=== PATIENT | female | born 1995 | race Hispanic/Latino ===

== ENCOUNTER 2018-01-07 01:06 | Emergency (ER) | payer MEDICAID, OTHER ==
[2018-01-07 02:02] LABS: BASOPHILS % (AUTO) 0.9 % (0.0-5.0); EOSINOPHILS % (AUTO) 1.7 % (0.0-8.0); HEMATOCRIT 40.5 % (36-48); LYMPHOCYTES % (AUTO) 28.5 % (21.0-51.0); MEAN CORPUSCULAR HEMOGLOBIN 29.3 pg (27.0-33.0); MEAN CORPUSCULAR HGB CONC 34.6 g/dL (32.0-36.0); MEAN CORPUSCULAR VOLUME 84.7 fL (80-100); MONOCYTES % (AUTO) 6.8 % (3.0-13.0); NEUTROPHILS % (AUTO) 62.1 % (40.0-77.0); PLATELET COUNT (AUTO) 220 K/uL (130-400); RED BLOOD CELL COUNT(AUTO) 4.78 MIL/uL (4.00-5.50); RED CELL DISTRIBUTION WIDTH 13.5 % (11.0-15.5); WHITE BLOOD COUNT (AUTO) 12.3 K/uL (4.8-10.8)
[2018-01-07 02:04] LABS: APPEARANCE,URINE Clear (CLEAR); BILIRUBIN,URINE Negative (NEGATIVE); COLOR,URINE Yellow (YELLOW); GLUCOSE, URINE (UA) Negative (NEGATIVE); KETONES,URINE Negative (NEGATIVE); LEUKOCYTE ESTERASE ,URINE Small (NEGATIVE); NITRATE,URINE Negative (NEGATIVE); OCCULT BLOOD,URINE Negative (NEGATIVE); PROTEIN,URINE Negative (NEGATIVE)
[2018-01-07 02:13] LABS: CREATININE 0.8 mg/dL (0.5-1.5); POTASSIUM 3.6 mmol/L (3.5-5.1)
[2018-01-07 02:15] LABS: BACTERIA,URINE None Seen /HPF (None Seen); MUCUS,URINE Rare LPF (None Seen); RBC,URINE None Seen /HPF (0-1); SQUAMOUS EPITHELIAL CELL,UR Few /LPF (0-2); WBC,URINE 0-1 /HPF (0-1)
== END 2018-01-07 05:11 | disposition home or self-care (01) ==
LOC: EDH 01:06
DX: O20.0 Threatened abortion (principal); R10.30 Lower abdominal pain, unspecified; Z3A.01 Less than 8 weeks gestation of pregnancy
CPT/HCPCS: 36415; 76801; 80048; 81001; 84702; 85025; 86900; 86901

== ENCOUNTER 2023-03-14 21:02 | Emergency (ER) | payer MEDICAID ==
[~2023-03-14] VITALS: Ht 157.5 cm; Wt 87.5 kg
[2023-03-14 21:05] VITALS: BP 111/62
[2023-03-14 21:32] LABS: BASOPHILS % (AUTO) 0.4 % (0.0-5.0); EOSINOPHILS % (AUTO) 1.1 % (0.0-8.0); HEMATOCRIT 37.2 % (36-48); LYMPHOCYTES % (AUTO) 13.5 % (21.0-51.0); MEAN CORPUSCULAR HEMOGLOBIN 29.9 pg (27.0-33.0); MEAN CORPUSCULAR HGB CONC 34.7 g/dL (32.0-36.0); MEAN CORPUSCULAR VOLUME 86.1 fL (79-99); MONOCYTES % (AUTO) 5.2 % (3.0-13.0); NEUTROPHILS % (AUTO) 79.3 % (40.0-77.0); PLATELET COUNT (AUTO) 177 K/uL (130-400); RED BLOOD CELL COUNT(AUTO) 4.32 MIL/uL (4.00-5.50); RED CELL DISTRIBUTION WIDTH 13.3 % (11.0-15.5); WHITE BLOOD COUNT (AUTO) 9.7 K/uL (4.8-10.8)
[2023-03-14 21:34] LABS: APPEARANCE,URINE CLEAR (CLEAR); BILIRUBIN,URINE NEGATIVE (NEGATIVE); COLOR,URINE LIGHT-YELLOW (YELLOW); GLUCOSE, URINE (UA) NEGATIVE (NEGATIVE); KETONES,URINE NEGATIVE (NEGATIVE); LEUKOCYTE ESTERASE ,URINE NEGATIVE Leu/uL (NEGATIVE); NITRATE,URINE NEGATIVE (NEGATIVE); OCCULT BLOOD,URINE NEGATIVE (NEGATIVE); PH,URINE 5.5 (5.0-8.0); PROTEIN,URINE NEGATIVE (NEGATIVE); UROBILINOGEN,URINE 0.2 mg/dL (0.2-1.0)
[2023-03-14 21:37] LABS: MUCUS,URINE RARE LPF (None Seen); RBC,URINE 0-1 /HPF (0-1); SQUAMOUS EPITHELIAL CELL,UR RARE /HPF (0-2); WBC,URINE 0-1 /HPF (0-1)
[2023-03-14 21:43] LABS: CREATININE 0.6 mg/dL (0.5-1.5); POTASSIUM 3.8 mmol/L (3.5-5.1)
[2023-03-14 21:48] LABS: ALBUMIN 3.1 g/dL (3.5-5.0); TOTAL PROTEIN, SERUM 7.1 g/dL (6.0-8.3)
== END 2023-03-14 23:35 | disposition home or self-care (01) ==
LOC: EDH 21:02
DX: O26.892 Other specified pregnancy related conditions, second trimester (principal); R10.9 Unspecified abdominal pain; Z3A.18 18 weeks gestation of pregnancy
CPT/HCPCS: 36415; 76805; 80053; 81001; 81025; 83690; 84702; 85025; 86900; 86901

== ENCOUNTER 2023-09-25 21:43 | Emergency (ER) | payer MEDICAID ==
[~2023-09-25] VITALS: Ht 157.5 cm; Wt 92.1 kg
[2023-09-25 21:49] VITALS: BP 134/79; PULSE 74; RESP 16
[2023-09-25] MEDS ORDERED: OMEP20TA20 PO (22:19)
== END 2023-09-25 22:32 | disposition home or self-care (01) ==
LOC: EDH 21:43
DX: K29.70 Gastritis, unspecified, without bleeding (principal)
CPT/HCPCS: 99282

== ENCOUNTER 2025-03-31 14:42 | Emergency (ER) | payer BC, MEDICAID ==
[~2025-03-31] VITALS: Ht 157.5 cm; Wt 86.2 kg
[~2025-03-31 14:42] MED LIST: OMEP20TA20 PO
--- NOTE | 2025-03-31 15:47 | ERN ---
General Chief Complaint: Abdominal Pain Stated Complaint: ABDOMINAL PAIN RADIATES TO MY BACK Time Seen by MD: 14:56 Source: patient History of Present Illness Initial Comments Patient is a healthy 29-year-old female who says that she has pain that starts in her back and then migrates around to the front on the right side of her abdomen torso. She woke up this morning with this pain. No fever no chills no nausea no vomiting no diarrhea no symptoms of a urinary tract infection no changes in her bowel habits. Allergies: Coded Allergies: No Allergy Information Available (Verified Allergy, Unknown, 08/25/18) No Known Drug Allergies (Unverified Allergy, Unknown, 08/25/18) Home Meds Active Scripts Omeprazole (Omeprazole) 20 Mg Tablet., 20 MG PO DAILY for 30 Days, #30 TAB Prov:PRISCILLA HARTLEY [employer] 09/25/23 Past Medical History Past Medical History: GERD Medical History Other: GASTRITIS Past Surgical History: None Female( History) : 4 Para: 3 Aborts: 1 ROS Dictation Review of systems is otherwise negative. Physical Exam General Appearance: (+) no apparent distress Orientation: (+) oriented x 3 Head/Face Trauma: No Eye: bilateral eye normal inspection, bilateral eye PERRL, bilateral eye EOMI Ear, Nose, Throat: (+) hearing grossly normal, (+) normal ENT inspection, (+) moist mucous membraine Neck: (+) normal inspection, (+) supple, (+) full range of motion Respiratory: (+) chest non-tender, (+) lungs clear, (+) well ventilated Heart: (+) regular, (+) no gallop Vascular: (+) no edema, (+) normal peripheral pulse Gastrointestinal: (+) soft, (+) non-tender, (+) no organomegaly, (+) bowel sound present Results Laboratory and Microbiology Lab and Micro Result Laboratory Tests Test 03/31/25 15:45 03/31/25 15:57 Urine Color LIGHT-YELLOW (YELLOW) Urine Appearance CLEAR (CLEAR) Urine pH 7.0 (5.0-8.0) Urine Specific [place] 1.018 (1.001-1.031) Urine Protein NEGATIVE mg/dL (NEGATIVE) Urine Glucose (UA) NEGATIVE mg/dL (NEGATIVE) Urine Ketones 10 mg/dL (NEGATIVE) H Urine Occult Blood NEGATIVE (NEGATIVE) Urine Nitrate NEGATIVE (NEGATIVE) Urine Bilirubin NEGATIVE mg/dL (NEGATIVE) Urine Urobilinogen 0.2 mg/dL (0.2-1.0) Urine Leukocyte Esterase 75 Alireza/uL (NEGATIVE) H Urine RBC 2-5 /HPF (0-1) H Urine WBC 2-5 /HPF (0-1) H Urine Squamous Epithelial Cells FEW /HPF (0-2) Urine Bacteria RARE /HPF (None Seen) Urine HCG, Qualitative NEGATIVE (NEGATIVE) Sodium Level 138 mmol/L (136-145) Potassium Level 4.3 mmol/L (3.5-5.1) Chloride Level 101 mmol/L (101-111) Carbon Dioxide Level 28 mmol/L (21-32) Blood Urea Nitrogen 7 mg/dL (7-18) Creatinine 0.7 mg/dL (0.5-1.0) Glomerular Filtration Rate Calc 121 mL/min (>90) Random Glucose 95 mg/dL (70-105) Total Calcium 8.9 mg/dL (8.5-10.1) Total Bilirubin 0.5 mg/dL (0.2-1.0) Aspartate Amino Transf (AST/SGOT) 20 U/L (10-37) Alanine Aminotransferase (ALT/SGPT) 30 U/L (12-78) Alkaline Phosphatase 88 U/L (50-136) Total Protein 8.2 g/dL (6.0-8.3) Albumin 3.9 g/dL (3.5-5.0) MDM Patient's symptoms are mild. And has been present for only a day. Differential could go from simple bowel contractions to gallbladder disease to pancreatic disease to kidney stones dehydration muscle contracture laboratory abnormalities. I will start with a GI cocktail as well as fluid. Standard labs including a UA. No need for a CT scan, patient's pain is extremely mild in his already resolving. Also her abdomen is extremely soft extremely nontender. Patient's chemistry panel is normal there was a small esterase activity in her urine. I will give her a prescription for antibiotics. The patient says she feels fine the pain is all gone. I do not know if it was the GI cocktail or the L of fluid but in either case she can go home. ED Course Orders Procedure Category Date Status Time Comprehensive LAB 03/31/25 Complete Metabolic Panel 15:47 Urinalysis Profile LAB 03/31/25 Complete 15:47 ,Urine Test LAB 03/31/25 Complete 15:47 Lactated Ringers PHA 03/31/25 Complete 1000ml (Lactated 15:47 Lidocaine Hcl 2% PHA 03/31/25 Complete Viscous (Lidocaine Hcl 16:00 Mag/Alum/Simeth 30ml PHA 03/31/25 Complete (Maalox Plus 30ml) 16:00 Dicyclomine Hcl PHA 03/31/25 Complete (Bentyl 10mg/5ml 16:00 Culture Urine MAY 03/31/25 In Process 16:08 Current Medications Medications (Trade) Dose Ordered Sig/Ivon Route PRN Reason Start Time Stop Time Status Last Admin Dose Admin Al Hydroxide/Mg Hydroxide (MAALox PLUS 30ML) 30 ml ONCE ONCE PO 03/31/25 16:00 03/31/25 16:01 DC 03/31/25 16:07 Dicyclomine HCl (Bentyl 10mg/5ml Syrup) 10 mg ONCE ONCE PO 03/31/25 16:00 03/31/25 16:01 DC 03/31/25 16:07 Lactated Ringer's (Lactated Ringers 1000ml) 1,000 ml BOLUS STAT IV 03/31/25 15:47 03/31/25 15:52 DC 03/31/25 16:07 Lidocaine HCl (Lidocaine HCl 2% Viscous) 10 ml ONCE ONCE PO 03/31/25 16:00 03/31/25 16:01 DC 03/31/25 16:07 Vital Signs Date Time Temp Pulse Resp B/P (MAP) Pulse Ox O2 Delivery O2 Flow Rate FiO2 03/31/25 17:03 97.3 72 18 128/72 100 Room Air* 0 21 03/31/25 15:44 97.3 77 18 123/78 100 Room Air* 0 21 03/31/25 15:27 97.3 77 18 123/78 100 Room Air 0 DX & DISP Disposition: Discharge Departure Impression: Primary Impression: UTI (urinary tract infection) Condition: Stable Scripts Cephalexin Monohydrate (Keflex) 500 Mg Cap 500 MG PO QID for 7 Days, #28 CAP Prov: MARKUS PORRAS MD 03/31/25 Referrals: SELF,REFERRAL (PCP) MARKUS PORRAS MD March 31, 2025 15:47
[2025-03-31 16:07] LABS: ADD UA MICROSCOPIC YES; APPEARANCE,URINE CLEAR (CLEAR); BILIRUBIN,URINE NEGATIVE (NEGATIVE); COLOR,URINE LIGHT-YELLOW (YELLOW); GLUCOSE, URINE (UA) NEGATIVE (NEGATIVE); KETONES,URINE 10 mg/dL (NEGATIVE); LEUKOCYTE ESTERASE ,URINE 75 Leu/uL (NEGATIVE); NITRATE,URINE NEGATIVE (NEGATIVE); OCCULT BLOOD,URINE NEGATIVE (NEGATIVE); PROTEIN,URINE NEGATIVE (NEGATIVE); UROBILINOGEN,URINE 0.2 mg/dL (0.2-1.0)
[2025-03-31] MEDS: DICYCLOMINE HCL 10 MG/5 ML ML PO ONE (16:07)
[2025-03-31] MEDS: LIDOCAINE HCL 2% VISCOUS 15 ML UDCUP PO ONE (16:07)
[2025-03-31] MEDS: LACTATED RINGERS 1000ML IV STA (16:07)
[2025-03-31] MEDS: MAG/ALUM/SIMETH 30 ML UDCUP PO ONE (16:07)
[2025-03-31 16:10] LABS: HCG,QUALITATIVE URINE NEGATIVE (NEGATIVE)
[2025-03-31 16:11] LABS: CREATININE 0.7 mg/dL (0.5-1.0); POTASSIUM 4.3 mmol/L (3.5-5.1)
[2025-03-31 16:16] LABS: ALBUMIN 3.9 g/dL (3.5-5.0); BILIRUBIN,TOTAL 0.5 mg/dL (0.2-1.0); TOTAL PROTEIN, SERUM 8.2 g/dL (6.0-8.3)
[2025-03-31 16:35] LABS: BACTERIA,URINE RARE /HPF (None Seen); MUCUS,URINE FEW LPF (None Seen); SQUAMOUS EPITHELIAL CELL,UR FEW /HPF (0-2)
[2025-03-31] MEDS ORDERED: CEPH500B PO (17:48)
[2025-03-31 18:07] VITALS: BP 124/76; PULSE 70; RESP 18; TEMP 97.3; O2SAT 100
== END 2025-03-31 18:08 | disposition home or self-care (01) ==
LOC: EDH 14:42
DX: N39.0 Urinary tract infection, site not specified (principal); Z79.899 Other long term (current) drug therapy
CPT/HCPCS: 99283; 80053; 87086; 81001; 81025; 36415; J7120